=== PATIENT | female | born 2005 | race Caucasian/White ===

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

== ENCOUNTER 2023-11-03 12:59 | Emergency (ER) | payer MEDICAID ==
[~2023-11-03] VITALS: Ht 165.1 cm; Wt 88.5 kg
[~2023-11-03 12:59] MED LIST: [UNRECOGNIZED DRUG - CODE] PO
[2023-11-03 13:15] VITALS: BP_SYST 147; PULSE 108; RESP 16; TEMP 97.8; O2SAT 100
[2023-11-03 14:30] LABS: BILIRUBIN,URINE NEGATIVE (NEGATIVE); BLOOD, URINE NEGATIVE (NEGATIVE); CLARITY/URINE CLEAR (CLEAR); COLOR,URINE YELLOW (YELLOW); GLUCOSE,URINE NEGATIVE (NEGATIVE); KETONES,URINE NEGATIVE (NEGATIVE); LEUKOCYTE ESTERASE ,URINE NEGATIVE (NEGATIVE); NITRITE, URINE NEGATIVE (NEGATIVE); PROTEIN URINE NEGATIVE (NEGATIVE); UROBILINOGEN,URINE 0.2 (0.2-1.0)
[2023-11-03 14:59] LABS: BASOPHILS % (AUTO) 0.5 % (0.0-2.0); EOSINOPHILS % (AUTO) 0.5 % (0.0-4.0); HEMATOCRIT 31.5 % (36-48); LYMPHOCYTES # (AUTO) 1.6 K/uL (1.0-5.5); MEAN CORPUSCULAR HEMOGLOBIN 22 pg (27-31); MEAN CORPUSCULAR HGB CONC 32 % (32-36); MEAN CORPUSCULAR VOLUME 68 fL (79.0-98.0); MONOCYTES # (AUTO) 0.7 K/uL (0.0-1.0); MONOCYTES % (AUTO) 7.6 % (1.7-9.3); NEUTROPHILS # (AUTO) 7.4 K/uL (1.8-7.7); NEUTROPHILS % (AUTO) 75.4 % (40.0-70.0); PLATELET COUNT (AUTO) 446 K/uL (130-430); RED BLOOD CELL COUNT(AUTO) 4.64 MIL/uL (4.2-6.2); RED CELL DISTRIBUTION WIDTH 14.8 % (9.0-15.0); WHITE BLOOD COUNT (AUTO) 9.8 K/uL (4.5-11.0)
[2023-11-03 15:07] LABS: SERUM HCG (QUALITATIVE) NEGATIVE (NEGATIVE)
[2023-11-03 15:20] LABS: OVALOCYTES FEW
[2023-11-03 16:17] LABS: CALCIUM 8.3 mg/dL (8.4-11.0); CREATININE 0.82 mg/dL (0.55-1.30)
[2023-11-03] MEDS ORDERED: IBUP-1969 PO (17:01)
[2023-11-03] MEDS ORDERED: HYDR-3917 PO (17:01)
[2023-11-03 17:12] VITALS: BP_SYST 154; PULSE 82; RESP 13; TEMP 97.8; O2SAT 100
== END 2023-11-03 17:11 | disposition home or self-care (01) ==
LOC: SED 12:59
DX: N83.299 Other ovarian cyst, unspecified side (principal); R10.2 Pelvic and perineal pain; Z79.899 Other long term (current) drug therapy
CPT/HCPCS: 36415; 80048; 81001; 81003; 81025; 84703; 85025; 99284